=== PATIENT | female | born 1940 | race Caucasian/White ===

== ENCOUNTER → 2017-07-12 | Outpatient (CLI) | payer MEDICARE ==
[2017-07-12 11:58] LABS: Basophils % (A) 1 %; CH 32.1; Eosinophils # (A) 0.1 k/uL (0-0.7); Eosinophils % (A) 2 %; HCT 38.1 % (34.0-46.0); HDW 3.03; HGB 11.9 gm/dL (11.4-16.0); Hypochromasia Slight; Luc # (Auto) 0.23; Luc % (Auto) 4; Lymphocytes # (A) 0.6 k/uL (1.0-4.8); Lymphocytes % (A) 12 %; MCH 31.6 pg (25.0-35.0); MCHC 31.3 g/dL (31.0-37.0); Macrocytosis Slight; Mean Platelet Volume 6.6; Monocytes # (A) 0.4 k/uL (0-1.0); Monocytes % (A) 8 %; Neutrophils # (A) 4.1 k/uL (1.3-7.7); Neutrophils % (A) 74 %; RBC 3.77 m/uL (3.80-5.40); RDW 13.9 % (11.5-15.5); WBC 5.5 k/uL (3.8-10.6); WBC (Perox) 5.58
[2017-07-12 12:00] LABS: Appearance,Urine Clear (Clear); Bilirubin,Urine Negative (Negative); Glucose,Urine (UA) Negative (Negative); Ketones,Urine Negative (Negative); Leukocyte Esterase,Urine Trace (Negative); Mucus,Urine Rare /hpf; Nitrite,Urine Negative (Negative); Particle Count 1219; Protein,Urine 1+ (Negative); RBC,Urine <1 /hpf (0-5); Specific Gravity,Urine 1.014 (1.001-1.035); Squamous Epithelial Cell,Urine 2 /hpf (0-4); UA Billing (MACRO vs. MICRO) MICRO; Urobilinogen,Urine <2.0 mg/dL (<2.0); WBC,Urine 4 /hpf (0-5)
[2017-07-12 12:13] LABS: Calcium 9.2 mg/dL (8.4-10.2); Magnesium 1.5 mg/dL (1.6-2.3); Phosphorus 3.2 mg/dL (2.5-4.5); Potassium 3.8 mmol/L (3.5-5.1); Uric Acid 5.6 mg/dL (3.7-7.4)
[2017-07-12 15:17] LABS: Iron Saturation 30.17 (12.00-45.00)
== END | disposition home or self-care (01) ==
LOC: LABWHC1 10:50
PROVIDERS: ATTEND Nurse Practitioner Family
DX: E55.9 Vitamin D deficiency, unspecified (principal); N17.9 Acute kidney failure, unspecified; D50.9 Iron deficiency anemia, unspecified; N39.0 Urinary tract infection, site not specified; N25.81 Secondary hyperparathyroidism of renal origin; M10.9 Gout, unspecified
CPT/HCPCS: 36415; 80048; 81001; 82306; 82728; 83540; 83550; 83735; 83970; 84100; 84550; 85025

== ENCOUNTER → 2018-02-20 | Outpatient (CLI) | payer MEDICARE ==
[2018-02-20 07:47] LABS: Appearance,Urine Clear (Clear); Basophils % (A) 1 %; Bilirubin,Urine Negative (Negative); Blood,Urine Negative (Negative); Color,Urine Light Yellow; Eosinophils # (A) 0.1 k/uL (0-0.7); Eosinophils % (A) 3 %; Glucose,Urine (UA) Negative (Negative); HCT 38.6 % (34.0-46.0); HGB 12.3 gm/dL (11.4-16.0); Ketones,Urine Negative (Negative); Leukocyte Esterase,Urine Negative (Negative); Lymphocytes # (A) 1.2 k/uL (1.0-4.8); Lymphocytes % (A) 23 %; MCH 32.1 pg (25.0-35.0); MCHC 31.9 g/dL (31.0-37.0); MCV 100.7 fL (80.0-100.0); Macrocytosis Slight; Mean Platelet Volume 6.5; Monocytes # (A) 0.4 k/uL (0-1.0); Monocytes % (A) 8 %; Neutrophils # (A) 3.1 k/uL (1.3-7.7); Neutrophils % (A) 63 %; Nitrite,Urine Negative (Negative); Platelet Count 227 k/uL (150-450); Protein,Urine Trace (Negative); RBC 3.84 m/uL (3.80-5.40); RDW 14.2 % (11.5-15.5); Specific Gravity,Urine 1.013 (1.001-1.035); Urobilinogen,Urine <2.0 mg/dL (<2.0)
[2018-02-20 08:14] LABS: Magnesium 1.7 mg/dL (1.6-2.3); Phosphorus 4.5 mg/dL (2.5-4.5); Uric Acid 5.5 mg/dL (3.7-7.4)
[2018-02-20 16:14] LABS: Iron Saturation 20.88 (12.00-45.00)
[2018-02-20 17:13] LABS: Parathyroid Hormone Intact 103.4 pg/mL (14.0-72.0)
== END | disposition home or self-care (01) ==
LOC: LABWHC1 06:48
PROVIDERS: ATTEND Internal Medicine Nephrology
DX: E55.9 Vitamin D deficiency, unspecified (principal); N18.3 Chronic kidney disease, stage 3 (moderate); D63.1 Anemia in chronic kidney disease; E21.3 Hyperparathyroidism, unspecified; M10.9 Gout, unspecified; N39.0 Urinary tract infection, site not specified
CPT/HCPCS: 36415; 80048; 81003; 82728; 83540; 83550; 83735; 83970; 84100; 84550; 85025

== ENCOUNTER → 2018-04-07 | Outpatient (CLI) | payer MEDICARE ==
--- NOTE | 2018-04-07 13:34 | XR ---
EXAMINATION TYPE: XR ribs LT w pa chest xray DATE OF EXAM: 04/07/2018 COMPARISON: NONE HISTORY: Left-sided pain TECHNIQUE: Frontal view of the chest and 2 views of the left ribs are submitted FINDINGS: There is a curvature of the spine. Arthropathy of the shoulders with diffuse osteopenia. Bi apical pleural thickening. No consolidation or pneumothorax. Subsegmental changes are seen at the lef t There is mildly displaced fractures involving the anterolateral left fifth, sixth and seventh ribs. IMPRESSION: 1. Mildly displaced fractures involving the left fifth, sixth and seventh ribs with basilar atelectas is or infiltrate. Correlate clinically. No sizable pneumothorax. A [place] level critical message alert has been initiated for Janice Noguera MD via the [employer] Critical Results System on 04/07/2018 1:32 PM. This message alert has been sent to Janice costa MD via the preferences provided by the clinician for the receipt of Radiology Critical Finding s. Message ID [id number].
== END | disposition home or self-care (01) ==
LOC: RADXRMAIN 13:05
PROVIDERS: ATTEND Family Medicine
DX: S22.42XA Multiple fractures of ribs, left side, initial encounter for closed fracture (principal)

== ENCOUNTER → 2018-04-09 | Outpatient (CLI) | payer MEDICARE ==
--- NOTE | 2018-04-09 09:26 | XR ---
EXAMINATION TYPE: XR ribs LT w pa chest xray DATE OF EXAM: 04/09/2018 COMPARISON: NONE HISTORY: Left rib and chest pain TECHNIQUE: 5 views submitted FINDINGS: Frontal view spine and atherosclerotic change aorta. No sizable thorax. Subsegmental consol idation lung bases most atelectasis. Biapical pleural thickening arthropathy shoulders. Heart size st able. There is a displaced fracture involving the anterior R margin of the left eighth ninth and 10th ribs. IMPRESSION: 1. Slightly displaced fractures involving the anterolateral left fifth through 10th ribs.
== END | disposition home or self-care (01) ==
LOC: RADXRMAIN 07:59
PROVIDERS: ATTEND Family Medicine
DX: S22.42XA Multiple fractures of ribs, left side, initial encounter for closed fracture (principal)

== ENCOUNTER → 2018-04-16 | Outpatient (CLI) | payer MEDICARE ==
--- NOTE | 2018-04-16 10:10 | XR ---
EXAMINATION TYPE: XR chest 2V DATE OF EXAM: 04/16/2018 COMPARISON: 04/09/2018 TECHNIQUE: PA and lateral views submitted. HISTORY: Pain FINDINGS: The lungs are clear and there is no pneumothorax, pleural effusion, or focal pneumonia. Lobulated d ensity along the left hemidiaphragm. This may be related to partial eventration. Arthropathy of the A C joints. No pneumothorax. No interstitial edema. Hypertrophic and degenerative change the spine. Ath erosclerotic change of the aorta. Scoliotic curvature of the spine. IMPRESSION: 1. There is a lobulated density along the lateral margin of the left lung. This may be related to par tial eventration of the diaphragm. Follow-up CT scan suggested.
--- NOTE | 2018-04-16 10:12 | XR ---
EXAMINATION TYPE: XR ribs LT DATE OF EXAM: 04/16/2018 COMPARISON: 04/09/2018 HISTORY: Pain TECHNIQUE: 4 views submitted FINDINGS: Deformities involving the left anterolateral fifth through 10th ribs again noted suggestive of recent fracture. IMPRESSION: Stable left-sided rib fractures. No pneumothorax. Lobulated contour to the left hemidiaph ragm again noted for which precautionary CT scan suggested.
== END | disposition home or self-care (01) ==
LOC: RADXRMAIN 08:26
PROVIDERS: ATTEND Family Medicine
DX: S22.42XA Multiple fractures of ribs, left side, initial encounter for closed fracture (principal); R91.8 Other nonspecific abnormal finding of lung field
CPT/HCPCS: 71046

== ENCOUNTER → 2018-04-17 | Outpatient (CLI) | payer OTHER, MEDICARE ==
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
== END | disposition home or self-care (01) ==
LOC: RADCTMAIN 17:29
PROVIDERS: ATTEND Family Medicine
DX: S22.42XA Multiple fractures of ribs, left side, initial encounter for closed fracture (principal); Q79.1 Other congenital malformations of diaphragm; N18.4 Chronic kidney disease, stage 4 (severe)
CPT/HCPCS: 71250; 74150

== ENCOUNTER → 2018-05-28 | Outpatient (CLI) | payer OTHER, MEDICARE ==
--- NOTE | 2018-05-28 11:34 | XR ---
Chest x-ray with left RIBS HISTORY: Rib fractures Frontal view of the chest and 4 views of the left ribs are submitted and correlated to prior chest x- ray and left RIBS 04/16/[address] 04/17/2018 There is a marked scoliosis present. Cardiac mediastinal silhouette, pulmonary vascularity and lauri a re stable. No evident pneumothorax or pleural effusion. 5th and 6th rib fractures are noted on oblique view, no significant displacement. Additional fracture s are not as well seen. IMPRESSION: Bone scan could be performed for increased sensitivity as indicated. Scoliosis contribute s to difficulty in visualizing patient's rib fractures.
== END | disposition home or self-care (01) ==
LOC: RADXRMAIN 09:33
PROVIDERS: ATTEND Family Medicine
DX: S22.42XA Multiple fractures of ribs, left side, initial encounter for closed fracture (principal); M41.9 Scoliosis, unspecified

== ENCOUNTER 2018-11-28 21:55 | Inpatient (IN) | payer MEDICARE ==
[2018-11-28] MEDS ORDERED: SODIUM CHLORIDE 0.9% 1,000 ML IV STA ×2 (22:52)
--- NOTE | 2018-11-28 22:52 | ED ---
Dizziness HPI - General Chief Complaint: Dizziness Stated Complaint: Light headed Time Seen by Provider: 11/28/18 22:51 Source: patient, RN notes reviewed, old records reviewed Mode of arrival: wheelchair Limitations: no limitations - History of Present Illness Initial Comments: This is a 70-year-old female the ER for evaluation of dizziness and weakness not feeling well. Symptoms 5 days. Progressively worsening. denies fevers. No headache chest pain shortness of breath or abdominal pain. Patient states her activity level is diminished. Was told she has a new renal failure going on Saturday was supposed to follow-up with her family doctor this coming Saturday. She says she can be given , she is just significantly worsening -: week(s) Timing: gradual onset Description: lightheadedness, nausea, near-syncope History of Same: No History of Trauma: No Severity: moderate Improves With: nothing Worsens With: movement, exertion Associated Symptoms: weakness - Related Data Home Medications Medication Instructions Recorded Confirmed Ascorbic Acid [Vitamin C] 60 mg PO DAILY@1200 02/07/15 11/28/18 Losartan [Cozaar] 25 mg PO DAILY 02/07/15 11/28/18 Magnesium Gluconate [Magonate] 1,000 mg PO DAILY 02/07/15 11/28/18 Mesalamine [Pentasa] 4,000 mg PO DAILY 02/07/15 11/28/18 Montelukast Chew [Singulair Chew] 10 mg PO DAILY 02/07/15 11/28/18 Omeprazole [PriLOSEC] 20 mg PO AC-BRKFST 02/07/15 11/28/18 Sodium Bicarbonate Tab 650 mg PO BID 02/11/15 11/28/18 Folic Acid 400 mg PO DAILY 03/14/15 11/28/18 Cholecalciferol (Vitamin D3) 50,000 unit PO DAILY 06/14/16 11/28/18 [Vitamin D3] Cranberry Fruit Concentrate 900 mg PO DAILY 06/14/16 11/28/18 [Cranberry] Cyanocobalamin [Vitamin B-12] 3,000 mcg PO DAILY 06/14/16 11/28/18 L. Rhamnosus GG/Inulin [Culturelle 1 each PO DAILY 06/14/16 11/28/18 Chewable Tablet] Melatonin 6 mg PO DAILY 06/14/16 11/28/18 Potassium Gluconate 550 mg PO DAILY 06/14/16 11/28/18 Prevalite 4 gram PO DAILY 06/14/16 11/28/18 Raloxifene [Evista] 60 mg PO DAILY 06/14/16 11/28/18 Allergies Allergy/AdvReac Type Severity Reaction Status Date / Time cephalexin monohydrate Allergy Swelling Verified 03/29/17 08:18 [From Keflex] erythromycin base Allergy Swelling Verified 03/29/17 08:18 iodine Allergy Rash/Hives Verified 03/29/17 08:18 Iodine and Iodide Containing Allergy Rash/Hives Verified 03/29/17 08:18 Produc Penicillins Allergy Rash/Hives Verified 03/29/17 08:18 Sulfa (Sulfonamide AdvReac Nausea Verified 03/29/17 08:18 Antibiotics) Review of Systems ROS Statement: Those systems with pertinent positive or pertinent negative responses have been documented in the HPI. ROS Other: All systems not noted in ROS Statement are negative. Past Medical History Additional Past Medical History / Comment(s): colitis, currently has ostomy History of Any Multi-Drug Resistant Organisms: None Reported Past Surgical History: Adenoidectomy, Cholecystectomy, Tonsillectomy Additional Past Surgical History / Comment(s): all teeth removed 08/31/15 Past Anesthesia/Blood Transfusion Reactions: No Reported Reaction Past Psychological History: No Psychological Hx Reported Smoking Status: Never smoker Past Alcohol Use History: None Reported Past Drug Use History: None Reported General Exam Limitations: no limitations General appearance: alert, in no apparent distress Head exam: Present: atraumatic, normocephalic, normal inspection Eye exam: Present: normal appearance, PERRL, EOMI. Absent: scleral icterus, conjunctival injection, periorbital swelling ENT exam: Present: normal exam, mucous membranes dry Neck exam: Present: normal inspection. Absent: tenderness, meningismus, lymphadenopathy Respiratory exam: Present: normal lung sounds bilaterally. Absent: respiratory distress, wheezes, rales, rhonchi, stridor Cardiovascular Exam: Present: regular rate, normal rhythm, normal heart sounds. Absent: systolic murmur, diastolic murmur, rubs, gallop, clicks GI/Abdominal exam: Present: soft, normal bowel sounds. Absent: distended, tenderness, guarding, rebound, rigid Extremities exam: Present: normal inspection, full ROM, normal capillary refill. Absent: tenderness, pedal edema, joint swelling, calf tenderness Back exam: Present: normal inspection Neurological exam: Present: alert, oriented X3, CN II-XII intact Psychiatric exam: Present: normal affect, normal mood Skin exam: Present: warm, dry, intact, normal color. Absent: rash Course Vital Signs 11/28/18 11/28/18 22:33 22:46 Temperature 97.9 F Pulse Rate 63 70 Respiratory 20 18 Rate Blood Pressure 135/62 126/75 O2 Sat by Pulse 94 L 96 Oximetry - Reevaluation(s) Reevaluation #1: 11/29/18 00:25 Medical record reviewed Reevaluation #2: 11/29/18 00:26 Patient has no significant improvement EKG Findings - EKG Comments: EKG Findings:: EKG shows NSR rate of 71 VA 154 QRS 80 QTc 465 Medical Decision Making - Medical Decision Making 78 female the ER for evaluation, dizziness, Patient is found to have significant hyponatremia today with severe dehydration and renal failure. We'll admit for electronically replacement rehydration hydration - Lab Data Result diagrams: 11/28/18 23:21 11/28/18 23:21 Lab Results 11/28/18 11/28/18 11/28/18 Range/Units 23:21 23:21 23:21 WBC 9.9 (3.8-10.6) k/uL RBC 3.53 L (3.80-5.40) m/uL Hgb 11.6 (11.4-16.0) gm/dL Hct 33.9 L (34.0-46.0) % MCV 96.2 (80.0-100.0) fL MCH 32.8 (25.0-35.0) pg MCHC 34.1 (31.0-37.0) g/dL RDW 15.3 (11.5-15.5) % Plt Count 203 (150-450) k/uL Neutrophils % 79 % Lymphocytes % 13 % Monocytes % 6 % Eosinophils % 1 % Basophils % 0 % Neutrophils # 7.9 H (1.3-7.7) k/uL Lymphocytes # 1.3 (1.0-4.8) k/uL Monocytes # 0.6 (0-1.0) k/uL Eosinophils # 0.1 (0-0.7) k/uL Basophils # 0.0 (0-0.2) k/uL Sodium 122 L (137-145) mmol/L Potassium 3.2 L (3.5-5.1) mmol/L Chloride 96 L (98-107) mmol/L Carbon Dioxide 13 L (22-30) mmol/L Anion Gap 13 mmol/L BUN 75 H (7-17) mg/dL Creatinine 1.89 H (0.52-1.04) mg/dL Est GFR (CKD-EPI)AfAm 29 (>60 ml/min/1.73 sqM) Est GFR (CKD-EPI)NonAf 25 (>60 ml/min/1.73 sqM) Glucose 113 H (74-99) mg/dL Plasma Lactic Acid Hubert 1.0 (0.7-2.0) mmol/L Calcium 8.3 L (8.4-10.2) mg/dL Phosphorus 4.0 (2.5-4.5) mg/dL Magnesium 1.2 L (1.6-2.3) mg/dL Total Bilirubin 0.6 (0.2-1.3) mg/dL AST 35 (14-36) U/L ALT 44 (9-52) U/L Alkaline Phosphatase 130 H (38-126) U/L Total Protein 6.4 (6.3-8.2) g/dL Albumin 3.8 (3.5-5.0) g/dL Disposition Clinical Impression: Dehydration, Hypomagnesemia, Hypokalemia, Hyponatremia Disposition: ADMITTED IP TO THIS HOSP Condition: Fair Is patient prescribed a controlled substance at d/c from ED?: No Referrals: Janice Noguera MD [Primary Care Provider] - 1-2 days
[2018-11-28 23:47] LABS: Basophils % (A) 0 %; Eosinophils # (A) 0.1 k/uL (0-0.7); Eosinophils % (A) 1 %; HCT 33.9 % (34.0-46.0); HGB 11.6 gm/dL (11.4-16.0); Lymphocytes # (A) 1.3 k/uL (1.0-4.8); Lymphocytes % (A) 13 %; MCH 32.8 pg (25.0-35.0); MCHC 34.1 g/dL (31.0-37.0); MCV 96.2 fL (80.0-100.0); Mean Platelet Volume 8.7; Monocytes # (A) 0.6 k/uL (0-1.0); Monocytes % (A) 6 %; Neutrophils # (A) 7.9 k/uL (1.3-7.7); Neutrophils % (A) 79 %; Platelet Count 203 k/uL (150-450); RBC 3.53 m/uL (3.80-5.40); RDW 15.3 % (11.5-15.5); WBC 9.9 k/uL (3.8-10.6)
[2018-11-29 00:01] LABS: Albumin 3.8 g/dL (3.5-5.0); Calcium 8.3 mg/dL (8.4-10.2); Magnesium 1.2 mg/dL (1.6-2.3); Potassium 3.2 mmol/L (3.5-5.1); Total Bilirubin 0.6 mg/dL (0.2-1.3); Total Protein 6.4 g/dL (6.3-8.2)
[2018-11-29] MEDS ORDERED: ONDANSETRON 4 MG/2 ML VIAL IVP PRN (00:22)
[2018-11-29] MEDS ORDERED: SODIUM CHLORIDE 0.9% 1,000 ML IV STA (00:22)
[2018-11-29] MEDS ORDERED: POTASSIUM CHLORIDE 20 MEQ in WATER FOR INJECTION 1 100ML.BAG IVPB ONE (00:30)
[2018-11-29 00:36] LABS: INR 0.9 (<1.2); Partial Thromboplastin Time 23.2 sec (22.0-30.0); Prothrombin Time 9.9 sec (9.0-12.0)
[2018-11-29] MEDS: MAGNESIUM SULFATE-D5W PMX 1 GM in DEXTROSE/WATER 1 100ML.BAG IVPB SCH ×5 (02:43→05:50)
--- NOTE | 2018-11-29 07:42 | P.HPIM ---
History of Present Illness H&P Date: 11/29/18 The patient is a 78 yo F with a H colitis s/p colectomy and L colostomy in 1963, HTN, and CKD presented to the ED for feeling fatigued and generally ill. The patient reports that she was seen by her PCP Dr Noguera a few days prior who had noted that the patient have worsening kidney function, and that she should increase her oral fluid intake and take rest and follow-up with her on Saturday. The patient reports that her symptoms worsened and she felt that she could not wait for her appointment and came to the ED. Other than decreased exercise tolerance and fatigue, the patient denied any additional complaints. She denied fever, chills, cough, chest pain, shortness of breath, nausea, vomiting, or diarrhea. She reports that her oral intake has been the same over the past few years and that her diet has not changed. She also reports that her colostomy bag has been functioning well and reported no changes in the color or consistency of stool. She lives independently and ambulates with a walker. The patient underwent an extensive evaluation in the emergency room with BMP showing sodium 122, potassium 3.2, chloride 96, bicarb 13, BUN 75, creatinine 1.89, and hemoglobin 11.6. EKG as reviewed by me revealed a normal sinus rhythm at [address]-T wave changes. The patient was subsequently admitted to the medicine service for multiple electrolyte derangements and MARIAH on CKD. Review of Systems Pertinent positives and negatives as discussed in HPI, a complete review of systems was performed and all other systems are negative. Past Medical History Additional Past Medical History / Comment(s): colitis, currently has ostomy History of Any Multi-Drug Resistant Organisms: None Reported Past Surgical History: Adenoidectomy, Cholecystectomy, Tonsillectomy Additional Past Surgical History / Comment(s): all teeth removed 08/31/15 Past Anesthesia/Blood Transfusion Reactions: No Reported Reaction Past Psychological History: No Psychological Hx Reported Smoking Status: Never smoker Past Alcohol Use History: None Reported Past Drug Use History: None Reported Medications and Allergies Home Medications Medication Instructions Recorded Confirmed Type Ascorbic Acid [Vitamin C] 60 mg PO DAILY@1200 02/07/15 11/28/18 History Losartan [Cozaar] 25 mg PO DAILY 02/07/15 11/28/18 History Magnesium Gluconate [Magonate] 1,000 mg PO DAILY 02/07/15 11/28/18 History Mesalamine [Pentasa] 4,000 mg PO DAILY 02/07/15 11/28/18 History Montelukast Chew [Singulair Chew] 10 mg PO DAILY 02/07/15 11/28/18 History Omeprazole [PriLOSEC] 20 mg PO AC-BRKFST 02/07/15 11/28/18 History Sodium Bicarbonate Tab 650 mg PO BID 02/11/15 11/28/18 History Folic Acid 400 mg PO DAILY 03/14/15 11/28/18 History Cholecalciferol (Vitamin D3) 50,000 unit PO DAILY 06/14/16 11/28/18 History [Vitamin D3] Cranberry Fruit Concentrate 900 mg PO DAILY 06/14/16 11/28/18 History [Cranberry] Cyanocobalamin [Vitamin B-12] 3,000 mcg PO DAILY 06/14/16 11/28/18 History L. Rhamnosus GG/Inulin [Culturelle 1 each PO DAILY 06/14/16 11/28/18 History Chewable Tablet] Melatonin 6 mg PO DAILY 06/14/16 11/28/18 History Potassium Gluconate 550 mg PO DAILY 06/14/16 11/28/18 History Prevalite 4 gram PO DAILY 06/14/16 11/28/18 History Raloxifene [Evista] 60 mg PO DAILY 06/14/16 11/28/18 History Allergies Allergy/AdvReac Type Severity Reaction Status Date / Time cephalexin monohydrate Allergy Swelling Verified 03/29/17 08:18 [From Keflex] erythromycin base Allergy Swelling Verified 03/29/17 08:18 iodine Allergy Rash/Hives Verified 03/29/17 08:18 Iodine and Iodide Containing Allergy Rash/Hives Verified 03/29/17 08:18 Produc Penicillins Allergy Rash/Hives Verified 03/29/17 08:18 Sulfa (Sulfonamide AdvReac Nausea Verified 03/29/17 08:18 Antibiotics) Physical Exam Vitals: Vital Signs Temp Pulse Resp BP Pulse Ox 11/28/18 22:46 70 18 126/75 96 11/28/18 22:33 97.9 F 63 20 135/62 94 L Intake and Output 11/28/18 11/28/18 11/29/18 14:59 22:59 06:59 Other: Weight 58.06 kg General: Non-toxic, in no acute distress, appears stated age, normal weight HEENT: NC/AT, anicteric sclerae, moist conjunctiva, no lid-lag, PERRLA Cardiovascular: S1/S2 wnl, no murmurs, rubs, or gallops Lungs: Clear to auscultation, normal respiratory effort, no accessory muscle use Abdominal: Soft, non-tender, L sided colostomy bag in place, clean and dry, non- distended, no guarding, rebound, or rigidity Skin: Warm, dry Extremities: No edema or contractures Psychiatric: Alert and oriented to person, place and time, appropriate affect Neuro: CN II-XII grossly intact, Strength 5/5 in all 4 extremities, Speech intact, Sensation to light touch grossly intact throughout Results CBC & Chem 7: 11/28/18 23:21 11/28/18 23:21 Labs: Abnormal Lab Results - Last 24 Hours (Table) 11/28/18 11/28/18 Range/Units 23:21 23:21 RBC 3.53 L (3.80-5.40) m/uL Hct 33.9 L (34.0-46.0) % Neutrophils # 7.9 H (1.3-7.7) k/uL Sodium 122 L (137-145) mmol/L Potassium 3.2 L (3.5-5.1) mmol/L Chloride 96 L (98-107) mmol/L Carbon Dioxide 13 L (22-30) mmol/L BUN 75 H (7-17) mg/dL Creatinine 1.89 H (0.52-1.04) mg/dL Glucose 113 H (74-99) mg/dL Calcium 8.3 L (8.4-10.2) mg/dL Magnesium 1.2 L (1.6-2.3) mg/dL Alkaline Phosphatase 130 H (38-126) U/L Assessment and Plan Plan: MARIAH on CKD -C/w IVFs 100 cc/hr -Nephrology consulted -Monitor BMP Multiple electrolyte derangements: Hyponatremia, hypokalemia, metabolic acidosis, hypochloremia -- 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 CODE STATUS:Full-Code Discussed with: Patient Anticipated discharge date: 12/01/[address]: Home A total of 35 minutes was spent on the care of this complex patient more than 50% of the time was spent in counseling and care coordination.
--- NOTE | 2018-11-29 07:56 | XR ---
EXAMINATION TYPE: XR chest 1V portable DATE OF EXAM: 11/29/2018 HISTORY: Interval change. REFERENCE: Previous study dated 05/28/2018. FINDINGS: The lungs are overinflated but clear. Pleural spaces are clear. The heart is not enlarged. IMPRESSION: NO ACTIVE INTRATHORACIC DISEASE.
[2018-11-29 08:26] LABS: Magnesium 3.5 mg/dL (1.6-2.3); Potassium 3.4 mmol/L (3.5-5.1)
[2018-11-29 09:03] LABS: Appearance,Urine Clear (Clear); Bacteria,Urine Few /hpf; Bilirubin,Urine Negative (Negative); Blood,Urine Moderate (Negative); Color,Urine Colorless; Glucose,Urine (UA) Negative (Negative); Ketones,Urine Negative (Negative); Leukocyte Esterase,Urine Negative (Negative); Mucus,Urine Rare /hpf; Nitrite,Urine Negative (Negative); Protein,Urine Negative (Negative); RBC,Urine 1 /hpf (0-5); Specific Gravity,Urine 1.004 (1.001-1.035); Urobilinogen,Urine <2.0 mg/dL (<2.0); WBC,Urine 1 /hpf (0-5)
--- NOTE | 2018-11-29 10:02 | P.NPCON ---
History of Present Illness - Reason for Consult acute renal failure, hyponatremia - History of Present Illness Reason for consultation: Acute kidney injury and hyponatremia History of present illness: Patient is a 78-year-old female seen in renal consultation for acute kidney injury and chronic kidney disease as well as hyponatremia. Patient states she was seen by her PCP on November 27 and had blood work done. She was noted to be in acute renal failure with creatinine of 2.6. She was advised to drink lots of water which the patient did. Patient states she drank 7-8 glasses of water on Saturday. Her oral intake has been simply fair. She has history of colectomy with ileostomy since 1994. She denies vomiting or diarrhea. She does admit to generalized weakness. No syncopal episodes. Her sodium level on November 27 was 136 and was down to 122 on November 28. She is currently maintained on normal crissy ine at 100 mL an hour. Sodium level is up to 130 this morning. She denies excessive output from her ileostomy. Denies use of nonsteroidals. She has history of chronic kidney disease with baseline creatinine in the range of 1.5- 1.7. Creatinine was 1.89 on admission and is 1.65 today. She denies chest pain or shortness of breath. No edema. She is noted to be acidotic with a bicarb level of 13. Vital signs are stable. General: The patient appeared well nourished and normally developed. HEENT: Head exam is unremarkable. Neck is without jugular venous distension. LUNGS: Lungs are clear to auscultation and percussion. Breath sounds decreased. HEART: Rate and Rhythm are regular. First and second heart sounds normal. No murmurs, rubs or gallops. ABDOMEN: Abdominal exam reveals normal bowel sounds. Non-tender and non- distended. No evidence of peritonitis. EXTREMITITES: No clubbing, cyanosis, or edema. Past Medical History Additional Past Medical History / Comment(s): colitis, currently has ostomy History of Any Multi-Drug Resistant Organisms: None Reported Past Surgical History: Adenoidectomy, Cholecystectomy, Tonsillectomy Additional Past Surgical History / Comment(s): all teeth removed 08/31/15 Past Anesthesia/Blood Transfusion Reactions: No Reported Reaction Past Psychological History: No Psychological Hx Reported Smoking Status: Never smoker Past Alcohol Use History: None Reported Past Drug Use History: None Reported Medications and Allergies Home Medications Medication Instructions Recorded Confirmed Type Losartan [Cozaar] 25 mg PO DAILY 02/07/15 11/29/18 History Mesalamine [Pentasa] 1,000 mg PO QID 02/07/15 11/29/18 History Prevalite 4 gram PO BID 06/14/16 11/29/18 History Allergies Allergy/AdvReac Type Severity Reaction Status Date / Time cephalexin monohydrate Allergy Swelling Verified 11/29/18 09:20 [From Keflex] erythromycin base Allergy Swelling Verified 11/29/18 09:20 iodine Allergy Rash/Hives Verified 11/29/18 09:20 Iodine and Iodide Containing Allergy Rash/Hives Verified 11/29/18 09:20 Produc Penicillins Allergy Rash/Hives Verified 11/29/18 09:20 Sulfa (Sulfonamide AdvReac Nausea Verified 11/29/18 09:20 Antibiotics) Physical Exam Vitals: Vital Signs Temp Pulse Pulse Resp BP BP Pulse Ox 11/29/18 01:44 97.8 F 84 16 129/64 98 11/29/18 00:53 97.9 F 85 18 118/48 99 11/28/18 22:46 70 18 126/75 96 11/28/18 22:33 97.9 F 63 20 135/62 94 L Intake and Output 11/28/18 11/29/18 11/29/18 22:59 06:59 14:59 Intake Total 300 Balance 300 Intake: Intake, IV Titration 300 Amount Magnesium Sulfate-D5w Pmx 200 1 gm In Dextrose/Water 1 100ml.bag @ 100 mls/hr IVPB Q1H [facility] Rx#: [id number] Potassium Chloride 20 meq 100 In Water For Injection 1 100ml.bag @ 50 mls/hr IVPB ONCE ONE Rx#: [id number] Other: # Voids 2 Weight 58.06 kg Results - Lab Results Most recent lab results Calcium 8.0 mg/dL (8.4-10.2) L 11/29/18 07:48 Phosphorus 4.0 mg/dL (2.5-4.5) 11/28/18 23:21 Magnesium 3.5 mg/dL (1.6-2.3) H 11/29/18 07:48 11/28/18 23:21 11/29/18 07:48 Assessment and Plan Plan: Assessment: 1. Acute hyponatremia secondary to excess water intake and low solute intake. Improving with IV hydration. 2. Metabolic acidosis secondary to acute kidney injury, IVFs and GI losses. 3. Hypokalemia from poor oral intake and hypomagnesemia. 4. Hypomagnesemia secondary to poor oral intake and GI losses. Status post replacement. Resolved. 5. Acute kidney injury mostly prerenal improving with IV hydration. Creatinine was 1.89 on admission and is 1.65 today. 6. Chronic kidney disease stage III secondary to nephrosclerosis with baseline creatinine in the range of 1.5-1.7. Plan: Discontinue normal saline. Start isotonic sodium bicarbonate drip to be run at 75 mL an hour. Replace potassium. 40 mEq today. Encouraged oral intake. Avoid nephrotoxins. Repeat electrolytes in the morning. This is acute hyponatremia and doesn't need to be corrected at a slow rate. Thank you for the consultation. I will continue to follow the patient with you during her hospital stay.
[2018-11-29] MEDS: SODIUM BICARBONATE TAB 650 MG TAB PO SCH ×2 (10:35→22:00)
[2018-11-29] MEDS: DEXTROSE 5% IN WATER 1,000 ML with SODIUM BICARB (1 MEQ/ML) 150 ML IV SCH (10:35)
[2018-11-29] MEDS: POTASSIUM CHLORIDE ER 20 MEQ TAB.ER PO STA ×2 (10:36→11:00)
[2018-11-29] MEDS ORDERED: POTASSIUM CHLORIDE ER 20 MEQ TAB.ER PO STA (10:51)
[2018-11-29] MEDS: RALOXIFENE 60 MG TAB PO SCH (10:59)
[2018-11-29] MEDS: BALSALAZIDE DISODIUM 750 MG CAPSULE PO SCH ×3 (11:00→21:59)
[2018-11-29] MEDS: MONTELUKAST 10 MG TAB PO SCH (11:01)
[2018-11-29 12:03] VITALS: BMI 21.9
--- NOTE | 2018-11-29 13:16 | P.PN ---
Progress Note - Text Progress Note Date: 11/29/18 Please refer to the H&P for full note. 78-year-old female with PMH of colitis status post colectomy and left colostomy, hypertension and CKD presents to the ED for fatigue. Patient reports drinking excessive amounts of fluid at the advice of her PCP for worsening renal function. In the ED, sodium was noted to be 122, potassium 3.2, chloride of 96, HCO3 of 13, BUN of 75 and creatinine of 1.89. Patient was started on normal saline and admitted to the floor. Nephrology was consulted and recommended switching to isotonic sodium bicarbonate drip. Her potassium was replaced today. Her magnesium was also replaced today. Patient was seen around 1:15 PM. She reports improvement in her fatigue and dizziness. Requesting to be off fall precautions. She denies any chest pain, shortness of breath or palpitations. No nausea or vomiting. No numbness/weakness/tingling of the extremities. We will continue D5 sodium bicarbonate along with sodium bicarbonate supplementation as per nephrology recommendations. Replace potassium and magnesium as needed. Continue all home medications. She is pending clinical improvement. Likely DC in 1-2 days.
[2018-11-29 14:41] LABS: Calcium 7.9 mg/dL (8.4-10.2); Potassium 3.8 mmol/L (3.5-5.1)
[2018-11-30] MEDS: DEXTROSE 5% IN WATER 1,000 ML with SODIUM BICARB (1 MEQ/ML) 150 ML IV SCH (00:52)
[2018-11-30] MEDS: SODIUM BICARBONATE TAB 650 MG TAB PO SCH ×2 (08:47→20:59)
[2018-11-30] MEDS: MONTELUKAST 10 MG TAB PO SCH (08:48)
[2018-11-30] MEDS: BALSALAZIDE DISODIUM 750 MG CAPSULE PO SCH ×3 (08:48→20:59)
[2018-11-30] MEDS: RALOXIFENE 60 MG TAB PO SCH (08:48)
[2018-11-30 10:01] LABS: Calcium 7.6 mg/dL (8.4-10.2); Magnesium 2.1 mg/dL (1.6-2.3)
--- NOTE | 2018-11-30 10:07 | P.PN ---
Subjective Patient is seen in follow-up for acute kidney injury and hyponatremia. Sodium level is up to 135 as of yesterday. Renal function also improving. Creatinine is 1.61 as of yesterday. Patient has chronic kidney disease stage III with baseline creatinine in the range of 1.5-1.7. She denies chest pain or shortness of breath. Oral intake is good. Currently maintained on bicarb drip. Vital signs are stable. General: The patient appeared well nourished and normally developed. HEENT: Head exam is unremarkable. Neck is without jugular venous distension. LUNGS: Lungs are clear to auscultation and percussion. Breath sounds decreased. HEART: Rate and Rhythm are regular. First and second heart sounds normal. No murmurs, rubs or gallops. ABDOMEN: Abdominal exam reveals normal bowel sounds. Non-tender and non- distended. No evidence of peritonitis. EXTREMITITES: No clubbing, cyanosis, or edema. Objective - Vital Signs Vital signs: Vital Signs Temp 98.4 F 11/30/18 08:22 Pulse 80 11/30/18 08:22 Resp 12 11/30/18 08:22 BP 109/67 11/30/18 08:22 Pulse Ox 97 11/30/18 08:22 Intake & Output 11/29/18 11/30/18 11/30/18 18:59 06:59 18:59 Intake Total 200 Output Total 350 Balance 200 -350 Weight 58.06 kg Intake: Intake, IV Titration 200 Amount Sodium Chloride 0.9% 1, 200 000 ml @ 100 mls/hr IV . Q10H STA Rx#:[id number] Output: Urine 350 Other: # Voids 2 1 - Labs CBC & Chem 7: 11/28/18 23:21 11/29/18 13:50 Labs: Abnormal Lab Results - Last 24 Hours (Table) 11/29/18 11/29/18 Range/Units 10:50 13:50 Sodium 135 L (137-145) mmol/L Chloride 111 H (98-107) mmol/L Carbon Dioxide 15 L (22-30) mmol/L BUN 57 H (7-17) mg/dL Creatinine 1.61 H (0.52-1.04) mg/dL Glucose 108 H (74-99) mg/dL Calcium 7.9 L (8.4-10.2) mg/dL U Random Total Protein 16 H (<12) mg/dL Microbiology - Last 24 Hours (Table) 11/29/18 08:37 Urine Culture - Preliminary Urine,Clean Catch Assessment and Plan Plan: Assessment: 1. Acute hyponatremia secondary to excess water intake and low solute intake. Improved. 2. Metabolic acidosis secondary to acute kidney injury, IVFs and GI losses. Maintained on bicarb drip. 3. Hypokalemia from poor oral intake and hypomagnesemia. Improved post replacement. 4. Hypomagnesemia secondary to poor oral intake and GI losses. Status post replacement. Resolved. 5. Acute kidney injury mostly prerenal improving with IV hydration. Creatinine was 1.89 on admission and down to 1.61 as of yesterday. 6. Chronic kidney disease stage III secondary to nephrosclerosis with baseline creatinine in the range of 1.5-1.7. Plan: Maintain bicarb drip for now. Can DC if bicarb level > 20 and start normal saline at 50 mL an hour for maintenance fluids. Encouraged oral intake. Avoid nephrotoxins. This is acute hyponatremia and doesn't need to be corrected at a slow rate. Anticipate discharge soon. She will need to follow-up as an outpatient in the next 1-2 weeks.
[2018-11-30 10:28] LABS: Potassium 2.5 mmol/L (3.5-5.1)
[2018-11-30] MEDS ORDERED: POTASSIUM CHLORIDE ER 20 MEQ TAB.ER PO STA ×2 (10:36→11:57)
[2018-11-30] MEDS ORDERED: POTASSIUM CHLORIDE 10 MEQ in WATER FOR INJECTION 1 100ML.BAG IVPB SCH (11:00)
--- NOTE | 2018-11-30 11:43 | P.PN ---
Subjective Progress Note Date: 11/30/18 Principal diagnosis: electrolyte abnormalities patient was seen and examined. No acute events overnight. Patient reports no symptoms this morning. She denies dizziness, shortness of breath, chest pain or palpitations. No nausea or vomiting. No fever or chills. Looking for to going home. Objective - Vital Signs Vital signs: Vital Signs Temp 98.4 F 11/30/18 08:22 Pulse 80 11/30/18 08:22 Resp 12 11/30/18 08:22 BP 109/67 11/30/18 08:22 Pulse Ox 97 11/30/18 08:22 Intake & Output 11/29/18 11/30/18 11/30/18 18:59 06:59 18:59 Intake Total 200 Output Total 350 Balance 200 -350 Weight 58.06 kg Intake: Intake, IV Titration 200 Amount Sodium Chloride 0.9% 1, 200 000 ml @ 100 mls/hr IV . Q10H STA Rx#:[id number] Output: Urine 350 Other: # Voids 2 1 - Exam General: [non toxic], [no distress], [appears at stated age] Derm: [warm], [dry] Head: [atraumatic], [normocephalic], [symmetric] Eyes: [EOMI], [no lid lag], [anicteric sclera] Mouth: [no lip lesion], [mucus membranes moist] Cardiovascular: [S1S2 reg], [no murmur], [positive posterior tibial pulse bilateral], Lungs: [CTA bilateral], [no rhonchi, no rales] , [no accessory muscle use] Abdominal: [soft], [ nontender to palpation], [no guarding], [no appreciable organomegaly] Ext: [no gross muscle atrophy], [no edema], [no contractures] Neuro: [no focal neuro deficits] Psych: [Alert], [oriented], [appropriate affect] - Labs CBC & Chem 7: 11/28/18 23:21 11/30/18 06:58 Labs: Abnormal Lab Results - Last 24 Hours (Table) 11/29/18 11/29/18 11/30/18 Range/Units 10:50 13:50 06:58 Sodium 135 L (137-145) mmol/L Potassium 2.5 L* (3.5-5.1) mmol/L Chloride 111 H (98-107) mmol/L Carbon Dioxide 15 L (22-30) mmol/L BUN 57 H 51 H (7-17) mg/dL Creatinine 1.61 H 1.55 H (0.52-1.04) mg/dL Glucose 108 H (74-99) mg/dL Calcium 7.9 L 7.6 L (8.4-10.2) mg/dL U Random Total Protein 16 H (<12) mg/dL Microbiology - Last 24 Hours (Table) 11/29/18 08:37 Urine Culture - Preliminary Urine,Clean Catch Assessment and Plan Assessment: Assessment and Plan 1. Hypokalemia 2. Acute kidney injury 3. Hyponatremia, resolved 4. Metabolic acidosis, resolved 5. Hypertension 1. Potassium 2.5 this morning. Replaced by nephrology.patient asymptomatic.daily BMP. 2. BUN 51, creatinine 1.55, improved from admission. Likely on chronic kidney disease. Appears to be within range. Avoid nephrotoxins. Monitor and replace electrodes. Daily BMP. Follow nephrology consultation. 3. Sodium 130 to 138, resolved. Likely secondary to excessive water intake.advised by nephrology no need for slow correction. Daily BMP. 4. HCO3 13 to 26, resolved. Likely secondary to CKD. Discontinue bicarbonate drip. Continue sodium bicarbonate 650 mg by mouth twice a day. Daily BMP. 5. BP 109/69. Hold losartan due to acute kidney injury. Monitor vitals, adjust medications as necessary. Electrolytes improving. Has hypokalemia this morning, will need IV replacement. Likely DC tomorrow.
[2018-11-30 13:17] LABS: Total Volume 24 Hour,Urine 1700 mls (250-2400)
[2018-11-30 14:00] LABS: Total Protein 24 Hour,Urine 272 mg/24hr (42.0-225.0)
[2018-12-01 08:09] LABS: Calcium 8.1 mg/dL (8.4-10.2); Magnesium 1.7 mg/dL (1.6-2.3); Potassium 3.3 mmol/L (3.5-5.1)
[2018-12-01 08:46] VITALS: RESP 15; TEMP 99.3
[2018-12-01] MEDS ORDERED: POTASSIUM CHLORIDE ER 20 MEQ TAB.ER PO STA (09:18)
[2018-12-01 10:32] VITALS: BP 106/67; PULSE 74
[2018-12-01] MEDS: SODIUM BICARBONATE TAB 650 MG TAB PO SCH (10:32)
[2018-12-01] MEDS: MONTELUKAST 10 MG TAB PO SCH (10:32)
[2018-12-01] MEDS: RALOXIFENE 60 MG TAB PO SCH (10:33)
[2018-12-01] MEDS: BALSALAZIDE DISODIUM 750 MG CAPSULE PO SCH (10:33)
--- NOTE | 2018-12-01 10:47 | P.DS ---
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 The patient reports that she was seen by her PCP Dr Noguera a few days prior who had noted that the patient have worsening kidney function, and that she should increase her oral fluid intake and take rest and follow-up with her on Saturday. The patient reports that her symptoms worsened and she felt that she could not wait for her appointment and came to the ED. Other than decreased exercise tolerance and fatigue, the patient denied any additional complaints. She denied fever, chills, cough, chest pain, shortness of breath, nausea, vomiting, or diarrhea. She reports that her oral intake has been the same over the past few years and that her diet has not changed. She also reports that her colostomy bag has been functioning well and reported no changes in the color or consistency of stool. She lives independently and ambulates with a walker. The patient underwent an extensive evaluation in the emergency room with BMP showing sodium 122, potassium 3.2, chloride 96, bicarb 13, BUN 75, creatinine 1.89, and hemoglobin 11.6. EKG as reviewed by me revealed a normal sinus rhythm at [address]-T wave changes. The patient was subsequently admitted to the medicine service for multiple electrolyte derangements and MARIAH on CKD. Patient was noted to be hypokalemic, hyponatremic with metabolic acidosis. She also had an acute kidney injury on chronic kidney disease. Nephrology was consulted. Patient was initially started on normal saline which was discontinued for isotonic sodium bicarbonate drip, which was recommended by nephrology. Her potassium was replaced by mouth and twice a day. Her potassium improved from 3.2-2.5-3.3 on discharge. Sodium improved from 122 09/26/1937 on discharge. Bicarbonate improved from 13-26 on discharge. Her creatinine improved from 1.89-1.64 on discharge. Patient was seen and examined prior to discharge. No acute events overnight. Patient reports no dizziness, chest pain or shortness of breath or palpitations. Looking forward to going home. General: [non toxic], [no distress], [appears at stated age] Derm: [warm], [dry] Head: [atraumatic], [normocephalic], [symmetric] Eyes: [EOMI], [no lid lag], [anicteric sclera] Mouth: [no lip lesion], [mucus membranes moist] Cardiovascular: [S1S2 reg], [no murmur], [positive posterior tibial pulse bilateral], Lungs: [CTA bilateral], [no rhonchi, no rales] , [no accessory muscle use] Abdominal: [soft], [ nontender to palpation], [no guarding], [no appreciable organomegaly] Ext: [no gross muscle atrophy], [no edema], [no contractures] Neuro: [no focal neuro deficits] Psych: [Alert], [oriented], [appropriate affect] Assessment and Plan 1. Hypokalemia 2. Acute kidney injury 3. Hyponatremia, resolved 4. Metabolic acidosis, resolved 5. Hypertension 1. Potassium 3.3 this morning. Replaced by mouth. Patient asymptomatic. Daily B MP. 2. BUN 51-47, creatinine 1.55-1.64, improved from admission. Likely on chronic kidney disease. Appears to be within range. Avoid nephrotoxins. Monitor and replace electrodes. Daily BMP. Follow nephrology consultation. 3. Sodium 130 to 138, resolved. Likely secondary to excessive water intake.advised by nephrology no need for slow correction. Daily BMP. 4. HCO3 13 to 26, resolved. Likely secondary to CKD. Discontinue bicarbonate drip. Continue sodium bicarbonate 650 mg by mouth twice a day. Daily BMP. 5. BP 106/67. Hold losartan due to acute kidney injury. Monitor vitals, ad just medications as necessary. Electrolytes improving. Replaced potassium this morning. Repeat potassium in the afternoon, DC if normal. Pertinent Studies: Chest x-ray Patient Condition at Discharge: Fair Plan - Discharge Summary Discharge Rx Participant: Yes New Discharge Prescriptions: New Raloxifene [Evista] 60 mg PO DAILY tab Montelukast [Singulair] 10 mg PO DAILY tab Continue Losartan [Cozaar] 25 mg PO DAILY Mesalamine [Pentasa] 1,000 mg PO QID Prevalite 4 gram PO BID Discharge Medication List Losartan [Cozaar] 25 mg PO DAILY 02/07/15 [History] Mesalamine [Pentasa] 1,000 mg PO QID 02/07/15 [History] Prevalite 4 gram PO BID 06/14/16 [History] Montelukast [Singulair] 10 mg PO DAILY tab 12/01/18 [Rx] Raloxifene [Evista] 60 mg PO DAILY tab 12/01/18 [Rx] Follow up Appointment(s)/Referral(s): Janice Noguera MD [Primary Care Provider] - 1-2 days Ambulatory/Diagnostic Orders: Basic Metabolic Panel [LAB.AMB] Time Frame: 3 Days, Location: None Selected Activity/Diet/Wound Care/Special Instructions: Diet: Heart healthy Follow-up with PCP within 1-2 days of discharge. Please limit your water intake. Take all medications as advised. Discharge Disposition: HOME SELF-CARE
--- NOTE | 2018-12-01 14:13 | PN ---
PROGRESS NOTE Patient is seen for followup for chronic kidney disease and hypokalemia. The patient has received potassium supplementation. Her serum creatinine has been fairly stable. It is actually improved from 1.89 to about 1.6 mg/dL. The patient's baseline creatinine has been about 1.6 to 1.7. PHYSICAL EXAMINATION: On examination today, blood pressure was 87/53, heart rate 81 per minute. She is afebrile. Examination of the heart, S1, S2. Examination of the lungs, bilateral breath sounds are heard. Abdomen is soft, nontender. Examination of the lower extremities shows no significant edema. LABS: Show sodium 138, potassium 3.3, BUN 47, serum creatinine 1.64. ASSESSMENT: 1. Acute kidney injury, currently improved, mainly prerenal, currently off of IV fluids. Renal function at baseline. 2. Chronic kidney disease stage III secondary to nephrosclerosis with renal function at baseline. 3. Hyponatremia, associated with poor solute intake, currently improved. 4. Hypokalemia. Maintained on supplementation. 5. Metabolic acidosis from renal failure and IV fluids, currently improved. Patient is maintained on oral sodium bicarb. PLAN: Patient can be discharged. She should follow up as outpatient with repeat labs in about 4 to 5 days' time. MMODL / IJN: [id number] /
== END 2018-12-01 15:01 | disposition home or self-care (01) | DRG 683 ==
LOC: EC 21:55 → 4SSUR 11-29 00:23
PROVIDERS: ADMIT Internal Medicine; ATTEND Internal Medicine
DX: N17.9 Acute kidney failure, unspecified (principal); E87.1 Hypo-osmolality and hyponatremia; E87.2 Acidosis; N18.3 Chronic kidney disease, stage 3 (moderate); E86.0 Dehydration; E87.8 Other disorders of electrolyte and fluid balance, not elsewhere classified; E83.42 Hypomagnesemia; E87.6 Hypokalemia; I12.9 Hypertensive chronic kidney disease with stage 1 through stage 4 chronic kidney disease, or unspecified chronic kidney disease; Z79.899 Other long term (current) drug therapy; Z90.49 Acquired absence of other specified parts of digestive tract; Z93.3 Colostomy status; Z88.0 Allergy status to penicillin; Z88.2 Allergy status to sulfonamides; Z88.1 Allergy status to other antibiotic agents; Z91.041 Radiographic dye allergy status
CPT/HCPCS: 36415; 71045; 80048; 80053; 80061; 81001; 81050; 82306; 82570; 82607; 83605; 83735; 83880; 83883; 84100; 84132; 84156; 84300; 84443; 84484; 84540; 85025; 85610; 85730; 87086; 93005; 96360; 99285

== ENCOUNTER → 2020-07-12 | Outpatient (CLI) | payer MEDICARE ==
[2020-07-12 10:29] VITALS: BP 124/65; PULSE 77; RESP 16; TEMP 97.9
[2020-07-12] MEDS: SODIUM CHLORIDE 0.9% 1,000 ML IV SCH ×2 (10:39→12:33)
== END | disposition home or self-care (01) ==
LOC: PROCWHC3 10:17
PROVIDERS: ATTEND Internal Medicine
DX: E86.0 Dehydration (principal)
CPT/HCPCS: 96360; 96361

== ENCOUNTER → 2023-07-10 | Outpatient (CLI) | payer MEDICARE ==
[2023-07-10 08:38] LABS: Basophils # (A) 0.1 k/uL (0-0.2); Basophils % (A) 1 %; Eosinophils # (A) 0.1 k/uL (0-0.7); Eosinophils % (A) 2 %; HCT 42.3 % (34.0-46.0); HGB 14.1 gm/dL (11.4-16.0); Lymphocytes # (A) 1.5 k/uL (1.0-4.8); Lymphocytes % (A) 24 %; MCH 34.5 pg (25.0-35.0); MCHC 33.2 g/dL (31.0-37.0); MCV 103.7 fL (80.0-100.0); Macrocytosis Slight; Mean Platelet Volume 7.2; Monocytes # (A) 0.4 k/uL (0-1.0); Monocytes % (A) 6 %; Neutrophils # (A) 4.2 k/uL (1.3-7.7); Neutrophils % (A) 65 %; Platelet Count 206 k/uL (150-450); RBC 4.08 m/uL (3.80-5.40); RDW 12.9 % (11.5-15.5); WBC 6.5 k/uL (3.8-10.6)
[2023-07-10 08:47] LABS: ALT 18 U/L (4-34); AST 26 U/L (14-36); African American GFR (CKD) 30 (>60 ml/min/1.73 sqM); Albumin 4.5 g/dL (3.5-5.0); Alkaline Phosphatase 71 U/L (38-126); Anion Gap 14 mmol/L; Blood Urea Nitrogen 45 mg/dL (7-17); Calcium 9.9 mg/dL (8.4-10.2); Carbon Dioxide 19 mmol/L (22-30); Chloride 107 mmol/L (98-107); Glucose 110 mg/dL (74-99); Magnesium 1.6 mg/dL (1.6-2.3); Non-African American GFR(CKD) 26 (>60 ml/min/1.73 sqM); Phosphorus 4.7 mg/dL (2.5-4.5); Sodium 140 mmol/L (137-145); Total Bilirubin 0.5 mg/dL (0.2-1.3); Total Protein 7.3 g/dL (6.3-8.2); Uric Acid 5.9 mg/dL (3.7-7.4)
[2023-07-10 08:53] VITALS: BP 163/92; PULSE 96; RESP 16; TEMP 98.3
[2023-07-10 10:56] LABS: Amorphous Sediment,Urine Rare /hpf; Appearance,Urine Clear (Clear); Bilirubin,Urine Negative (Negative); Blood,Urine Moderate (Negative); Color,Urine Colorless; Glucose,Urine (UA) Negative (Negative); Ketones,Urine Negative (Negative); Leukocyte Esterase,Urine Negative (Negative); Mucus,Urine Rare /hpf; Nitrite,Urine Negative (Negative); Protein,Urine Trace (Negative); RBC,Urine 53 /hpf (0-5); Specific Gravity,Urine 1.015 (1.001-1.035); Urobilinogen,Urine <2.0 mg/dL (<2.0); WBC,Urine 2 /hpf (0-5)
[2023-07-10 14:11] LABS: % Iron Saturation 28.61 (12.00-45.00); Iron 111 UG/DL (50-170); Total Iron Binding Capacity 388 UG/DL (228-460)
[2023-07-10 22:09] LABS: Urine Creatinine 58.2 mg/dL (28.0-217.0)
== END ==
LOC: PROCWHC3 08:11
PROVIDERS: ATTEND Nurse Practitioner Family
DX: N18.4 Chronic kidney disease, stage 4 (severe) (principal); D63.1 Anemia in chronic kidney disease; N39.0 Urinary tract infection, site not specified; R80.9 Proteinuria, unspecified; E55.9 Vitamin D deficiency, unspecified; N25.81 Secondary hyperparathyroidism of renal origin; M10.9 Gout, unspecified
CPT/HCPCS: 36000; 36415; 80053; 81001; 82043; 82306; 82570; 83540; 83550; 83735; 83970; 84100; 84550; 85025